=== PATIENT | female | born 1965 | race Caucasian/White ===

== ENCOUNTER → 2019-03-21 | Day surgery (SDC) | payer OTHER ==
--- NOTE | 2019-03-21 13:18 | OP ---
DATE OF OPERATION: 03/21/2019 PREOPERATIVE DIAGNOSIS: Abnormal right and left mammogram. POSTOPERATIVE DIAGNOSIS: Abnormal right and left mammogram. PROCEDURE: Bilateral stereotactic needle biopsy with clip. SURGEON: Amanda Trotter M.D. ANESTHESIA: Local. COMPLICATIONS: None. INDICATIONS FOR THE PROCEDURE: Patient presented for a routine screening mammography that noted cluster microcalcifications in the left breast along the 12 o'clock location, as well as a clustering calcifications in the right breast upper outer quadrant. Recommendation was needle biopsy. There was a 2nd area of calcifications in the right breast as well; however, the thought was that if these 2 were benign, that the 2ndx set in the upper inner right breast can be followed. The procedure was discussed with her, including the needle for a clip. PROCEDURE IN DETAIL: Patient was brought to [facility] [place], taken into the Stereotactic Biopsy Room, laid prone on the [place] table. First the left breast was approached and the calcifications in the upper left breast were identified. A sterile prep was obtained. A target was chosen. There was a positive stroke margin. The cranial approach was used for this. Using Betadine and 1% lidocaine, a 9-gauge Suros device was used to take several cores from this area. The cores showed calcifications within them. These were handled using the calcification protocol. A clip was deployed in the area. Hemostasis was assured with direct pressure. Steri-Strips were used to close the incision. Next, the patient was repositioned and the right breast was targeted. Again using the cranial approach, the calcifications in the upper outer right breast were identified. A sterile prep was obtained. A target was chosen. There was a positive stroke margin. Using Betadine and 1% lidocaine, a new 9-gauge Suros probe was used to take several cores from this area. The cores showed calcifications within them. These were handled using the calcification protocol and a clip was deployed in the area. Hemostasis was assured with direct pressure. Steri-Strips were used to close the incision. She tolerated the procedure well and left the breast imaging center in good condition. AMANDA TROTTER M.D. [id number]
--- NOTE | 2019-03-23 11:50 | PATH ---
Surgical Pathology Report Patient Name: SHAWN RIVAS [facility]. Rec. #: [id number] /Age/Gender: 1965 (Age: 53) / F Account: [id number] Location: [facility] Taken: 03/21/2019 Received: 03/21/2019 Reported: 03/23/2019 Physicians: Amanda Solorzano M.D. Specimen(s) Received A: LEFT BREAST SPECIMEN - WITH CALCIFICATIONS B: LEFT BREAST SPECIMEN - WITHOUT CALCIFICATIONS C: RIGHT BREAST SPECIMEN - WITH CALCIFICATIONS D: RIGHT BREAST SPECIMEN - WITHOUT CALCIFICATIONS Clinical History Left and right breast calcifications Final Diagnosis A. BREAST, LEFT, WITH CALCIFICATIONS, STEREOTACTIC BIOPSY: BENIGN BREAST TISSUE SHOWING FIBROCYSTIC CHANGES INCLUDING CYSTIC APOCRINE METAPLASIA AND STROMAL FIBROSIS. CALCIFICATIONS ARE PRESENT IN ASSOCIATION WITH CYST CONTENTS AND BENIGN GLANDULAR PARENCHYMA. B. BREAST, LEFT, WITHOUT CALCIFICATIONS, STEREOTACTIC BIOPSY: BENIGN BREAST TISSUE SHOWING FIBROCYSTIC CHANGES INCLUDING CYSTIC APOCRINE METAPLASIA WITH STROMAL FIBROSIS AND FOCAL SECRETORY CHANGE. CALCIFICATIONS ARE PRESENT IN ASSOCIATION WITH CYST CONTENTS. C. BREAST, RIGHT, WITH CALCIFICATIONS, STEREOTACTIC BIOPSY: BENIGN BREAST TISSUE SHOWING FIBROCYSTIC CHANGES INCLUDING CYSTIC APOCRINE METAPLASIA WITH CYST RUPTURE AND REACTION. CALCIFICATIONS ARE PRESENT IN ASSOCIATION WITH CYST CONTENTS AND EXTRUDED CYST MATERIAL D. 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 Electronically Signed Tessy Riggs M.D. Gross Description A. Received in formalin, labeled "left breast with calcifications" are six cores of light pabon and yellow-pabon tissue, ranging from 1.2-2.6 cm in length with a diameter of up to 0.3 cm. Entirely submitted in two cassettes. B. Received in formalin, labeled "left breast without calcifications" are three cores of light pabon and yellow-pabon tissue, ranging from 1.3-2.6 cm in length with a diameter up to 0.3 cm. Entirely submitted in one cassette. C. Received in formalin, labeled "right breast with calcifications" are two cores of light pabon and yellow-pabon tissue, each measuring 2.6 cm in length with a diameter of up to 0.3 cm. Entirely submitted in two cassettes. D. Received in formalin, labeled "right breast without calcifications" are six cores of light pabon and yellow-pabon tissue, ranging from 1.8-2.6 cm in length with a diameter of up to 0.3 cm. Entirely submitted in two cassettes. Time to formalin fixation: 25 minutes (L), 5 minutes (R) Total formalin fixation time: Approximately 7 hours AE03/21/2019 ebram/03/21/2019
== END | disposition home or self-care (01) ==
LOC: FMAMMOTONE 10:38
PROVIDERS: ATTEND Surgery
PROC: 0HBV3ZX Excision of Bilateral Breast, Percutaneous Approach, Diagnostic (ICD-10-PCS; principal; 2019-03-21)
DX: N60.12 Diffuse cystic mastopathy of left breast (principal); N60.32 Fibrosclerosis of left breast; N64.89 Other specified disorders of breast; R92.8 Other abnormal and inconclusive findings on diagnostic imaging of breast
CPT/HCPCS: 19081; 87899; 88305-TC; A4648